=== PATIENT | male | born 1975 | race Caucasian/White ===

== ENCOUNTER → 2022-07-27 09:27 | Outpatient (BNVA) | payer MEDICAID, SELFPAY | PROVIDERS: Referring Provider Family Medicine; Visit Provider Podiatrist Foot & Ankle Surgery | DX: M19.171 Post-traumatic osteoarthritis, right ankle and foot (principal); M25.571 Pain in right ankle and joints of right foot; M76.62 Achilles tendinitis, left leg | CPT/HCPCS: 73600; 77077; 99204 ==

== ENCOUNTER → 2024-01-12 09:36 | Outpatient (BNVA) | payer MEDICAID, SELFPAY | PROVIDERS: Visit Provider Podiatrist Foot & Ankle Surgery | DX: M19.171 Post-traumatic osteoarthritis, right ankle and foot; M76.62 Achilles tendinitis, left leg | CPT/HCPCS: 73610 ==

== ENCOUNTER 2024-04-26 09:53 | Outpatient (CLI) | payer OTHER, SELFPAY ==
--- NOTE | 2024-04-26 10:02 | XR_ITS ---
WS: [id number] Exam: XR knee LT 1-2V [id number] Date/Time of Exam: 04/26/2024 10:18 AM Reason For Exam: KNEE PAIN No fracture or dislocation noted. Articular relationships are intact. No joint effusion. XR/XR knee LT 1-2V [id number] Impression: Normal LEFT knee Kellgren-Ayaan Classification: 0
--- NOTE | 2024-04-26 10:03 | XR_ITS ---
WS: [id number] Exam: XR lumbar spine 2-3V* [id number] Date/Time of Exam: 04/26/2024 10:18 AM Reason For Exam: BACK PAIN No acute fracture or dislocation. Degenerative vacuum disc at L4-5. Slight spondylosis. Posterior madison ments are intact. Very slight levoscoliosis. XR/XR lumbar spine 2-3V* [id number] IMPRESSION: 1. Early degenerative disc narrowing at L4-5. Slight levoscoliosis. 2. No other significant finding.
== END 2024-04-26 09:54 | disposition home or self-care (01) ==
PROVIDERS: Visit Provider Dermatology
DX: M25.562 Pain in left knee (principal); M54.9 Dorsalgia, unspecified
CPT/HCPCS: 72100; 73560

== ENCOUNTER → 2025-07-27 08:54 | Outpatient (BNVA) | payer BC, MEDICAID, SELFPAY | PROVIDERS: Visit Provider Emergency Medicine | DX: M25.472 Effusion, left ankle (principal) | CPT/HCPCS: 73610 ==